=== PATIENT | male | born 1980 | race Caucasian/White ===

== ENCOUNTER 2023-12-09 10:46 | Emergency (ER) | payer OTHER, SELFPAY ==
--- NOTE | 2023-12-09 10:50 | ED.EYEPROB ---
HPI - Eye Problem General Chief complaint: Eye Problems Stated complaint: rt eye infection Time Seen by Provider: 12/09/23 10:50 Source: patient Mode of arrival: ambulatory Limitations: no limitations History of Present Illness HPI Narrative: Salvador is a 43-year-old male patient presenting to clinic today with complaints of right eye infection that started this morning. He reports he woke up this morning with his eye glued shut with yellow/green discharge. He reports both of his kids are currently being treated for pinkeye. States he woke up with some stinging in the eye and his eye matted shut. No injury to the right eye. Related Data Allergies Allergy/AdvReac Type Severity Reaction Status Date / Time No Known Allergies Allergy Verified 12/09/23 10:58 Review of Systems Review of Systems: Pertinent positives per HPI. Patient denies any fever, chills, rash, headache, visual changes, dizziness, cough, runny nose, sore throat, shortness of breath, chest pain, palpitations, nausea, vomiting, diarrhea, constipation, abdominal pain, or any urinary issues. PMFSH Comments At the time of my signature, I reviewed and agree with the nursing past medical, surgical, social, and family history. There is no relevant family history pertinent to the patient complaint. Exam Narrative: General: Well-developed, well nourished, in no apparent distress Head: Normocephalic, atraumatic Eyes: Pupils equally round and reactive to light bilaterally, EOM intact, left sclera and conjunctive clear, no discharge, lids normal, right sclera and conjunctiva injected with yellow mucopurulent discharge, right lids mildly swollen Ears: TMs intact and clear, ear canals clear, no drainage, grossly hearing normal. Nose: Nares patent, no discharge, no inflammation, no sinus tenderness. Mouth: Oropharynx without lesions or masses, good dentition, MMM. Neck: Supple, trachea midline, no enlargement of anterior or posterior cervical nodes, no thyroid masses or goiter palpable. Cardio: Regular rate and rhythm, s1 and s2 normal, no murmur appreciated. Resp: Clear to auscultation bilaterally anteriorly and posteriorly, no rhonchi, rales, wheezing or rubs Course Course Emergency Course: Portions of this record may have been created with voice recognition software. Level of Care: Express Care Visit Vital Signs Vital signs: Vital Signs Temperature 35.9 C L 05/27/24 10:57 Pulse Rate 78 12/09/23 10:57 Respiratory Rate 18 12/09/23 10:57 Blood Pressure 117/70 12/09/23 10:57 Pulse Oximetry 98 12/09/23 10:57 Oxygen Delivery Room Air 12/09/23 10:57 Temperature 35.9 C L 12/09/23 10:58 Pulse Rate 78 12/09/23 10:58 Respiratory Rate 18 12/09/23 10:58 Blood Pressure 117/70 12/09/23 10:58 Pulse Oximetry 98 12/09/23 10:58 Oxygen Delivery Room Air 12/09/23 10:58 Vital signs reviewed MDM - Eye Problem MDM Narrative Medical decision making narrative: At the time of visit patient is resting comfortably on the exam table. Patient appears to be nontoxic. Plan: I suspect patient has right bacterial conjunctivitis. Prescription for tobramycin eyedrops was given to the patient. Supportive measures were discussed with the patient and they voiced understanding discharge instructions and agrees to treatment plan. Return precautions reviewed Differential Diagnosis Differential diagnosis: Likely corneal abrasion, conjunctivitis, acute iritis, hyphema, periorbital cellulitis, subconjunctival hemorrhage, glaucoma, corneal ulcer and ruptured globe Discharge Plan Discharge Clinical Impression: Bacterial conjunctivitis Patient Disposition: Home, Self-Care Condition: Stable Instructions: Antibiotic Form, Conjunctivitis (ED) Additional Instructions: Conjunctivitis is considered contagious for 24 hours while on the antibiotic. Practice good hand washing techniques Avoid touching eyes Instill eyedrops as pres
[2023-12-09 10:57] VITALS: BP 117/70; PULSE 78; RESP 18; TEMP 35.9; O2SAT 98
[2023-12-09 10:58] VITALS: BP 117/70; PULSE 78; RESP 18; TEMP 35.9; O2SAT 98
== END 2023-12-09 11:18 | disposition home or self-care (01) ==
PROVIDERS: Emergency Provider Nurse Practitioner Family
DX: H10.89 Other conjunctivitis (principal)
CPT/HCPCS: 99213; G0463